=== PATIENT | male | born 1995 | race Two or more races ===

== ENCOUNTER 2018-04-10 22:43 | Emergency (ER) | payer SELFPAY ==
[~2018-04-10] VITALS: Ht 160 cm; Wt 68.0 kg
[2018-04-10] MEDS ORDERED: Morphine Sulfate 4mg/ml Inj (IV USE ONLY) IVP ONE (23:15)
[2018-04-10 23:22] LABS: HEMATOCRIT 46.3 % (42.0-52.0); HEMOGLOBIN 16.7 G/DL (14.2-18.0); MEAN CORPUSCULAR VOLUME 90 FL (80-99); PLATELET COUNT 130 K/UL (150-450); RED BLOOD COUNT 5.14 M/UL (4.70-6.10); RED CELL DISTRIBUTION WIDTH 10.2 % (11.6-14.8); WHITE BLOOD COUNT 17.6 K/UL (4.8-10.8)
[2018-04-10 23:26] VITALS: BP 141/87
[2018-04-10 23:30] LABS: ANION GAP 7 mmol/L (5-15); BLOOD UREA NITROGEN 17 mg/dL (7-18); CALCIUM 9.5 MG/DL (8.5-10.1); CARBON DIOXIDE 28 MMOL/L (21-32); CHLORIDE 102 MMOL/L (98-107); CREATININE 1.1 MG/DL (0.55-1.30); POTASSIUM 3.9 MMOL/L (3.5-5.1); SODIUM 137 MMOL/L (136-145)
[2018-04-10 23:34] LABS: ALANINE AMINOTRANSFERASE 40 U/L (12-78); ALBUMIN 4.5 G/DL (3.4-5.0); ALBUMIN/GLOBULIN RATIO 1.3 (1.0-2.7); ALKALINE PHOSPHATASE 74 U/L (46-116); ASPARTATE AMINO TRANSFERASE 38 U/L (15-37); BILIRUBIN,TOTAL 0.7 MG/DL (0.2-1.0)
[2018-04-11] MEDS ORDERED: Morphine Sulfate 4mg/ml Inj (IV USE ONLY) IVP ONE
[2018-04-11] MEDS ORDERED: Isovue-300 100ml vial INJ PRN
--- NOTE | 2018-04-11 00:35 | Emergency Room Report ---
History of Present Illness General Chief Complaint: Abdominal Pain Source: Patient Present Illness HPI 22-year-old male presents ED for evaluation. Patient came in complaining of abdominal pain and vomiting. Started around 2 PM today after eating lunch. Had multiple episodes of vomiting, chills with abdominal pain. Pain is diffuse, , 9 out of 10, sharp, nonradiating. Patient was seen at another hospital earlier this evening but left because it was taking too long. Denies chest pain or shortness of breath. Denies diarrhea. No other aggravating relieving factors. The any other associated symptoms Allergies: Coded Allergies: No Known Allergies (Unverified , 04/10/18) Patient History Past Medical History: none Past Surgical History: none Pertinent Family History: none Social History: Denies: smoking, alcohol use, drug use Immunizations: UTD Reviewed Nursing Documentation: PMH: Agreed; PSxH: Agreed Nursing Documentation-PMH Past Medical History: No Stated History Review of Systems All Other Systems: negative except mentioned in HPI Physical Exam Vital Signs Date Time Temp Pulse Resp B/P (MAP) Pulse Ox O2 Delivery O2 Flow Rate FiO2 04/10/18 22:47 98.3 85 16 150/91 99 Room Air 98.2 Sp02 EP Interpretation: reviewed, normal General Appearance: alert, GCS 15, non-toxic, mild distress Head: normocephalic, atraumatic Eyes: bilateral eye normal inspection, bilateral eye PERRL ENT: hearing grossly normal, normal pharynx, no angioedema, normal voice Neck: full range of motion, supple/symm/no masses Respiratory: chest non-tender, lungs clear, normal breath sounds, speaking full sentences Cardiovascular #1: regular rate, rhythm, no edema Cardiovascular #2: 2+ carotid (R), 2+ carotid (L), 2+ radial (R), 2+ radial (L) , 2+ dorsalis pedis (R), 2+ dorsalis pedis (L) Gastrointestinal: normal bowel sounds, soft, non-distended, no guarding, no rebound, tenderness Rectal: deferred Genitourinary: normal inspection, no CVA tenderness Musculoskeletal: back normal, gait/station normal, normal range of motion, non- tender Neurologic: alert, oriented x3, responsive, motor strength/tone normal, sensory intact, speech normal Psychiatric: judgement/insight normal, memory normal, mood/affect normal, no suicidal/homicidal ideation Reflexes: 3+ bicep (R), 3+ bicep (L), 3+ tricep (R), 3+ tricep (L), 3+ knee (R) , 3+ knee (L) Skin: normal color, no rash, warm/dry, well hydrated Lymphatic: no adenopathy Medical Decision Making Diagnostic Impression: Primary Impression: Abdominal pain Qualified Codes: R10.84 - Generalized abdominal pain Additional Impression: Gallbladder polyp ER Course Hospital Course 22-year-old M presents to ED with abdominal pain Differential diagnosis includes-appendicitis, cholecystitis, small bowel obstruction, gastritis, Clinical course Patient placed on stretcher. After initial history and physical I ordered labs , IV fluids, pain medications and CT scan Labs - noted leukocytosis, electrolytes ok, LFTs normal CT machine is down. Ultrasound ordered Ultrasound shows questionable polyp and gallbladder. Patient states pain is overall improved but still has some pain. I offered option to transfer patient for CT scan but patient declined stating he would prefer to go home with medication. discussed findings with patient about polyp. likely benign but requires outpatient followup. I feel this is a highly complex case requiring extensive working including EKG/ Rhythm strip, Xray/CT/US, Blood/urine lab work, repeat exams while in ED, and administration of strong opiates/narcotics for pain control, admission to hospital or close patient follow up. Diagnosis - abdominal pain, gallbladder polyp Stable and discharged to home with Rx Bentyl, Zantac. Followup with PMD. Return to ED if symptoms recur or worsen Labs Test 04/10/18 23:00 White Blood Count 17.6 K/UL (4.8-10.8) Red Blood Count 5.14 M/UL (4.70-6.10) Hemoglobin 16.7 G/DL (14.2-18.0) Hematocrit 46.3 % (42.0-52.0) Mean Corpuscular Volume 90 FL (80-99) Mean Corpuscular Hemoglobin 32.4 PG (27.0-31.0) Mean Corpuscular Hemoglobin Concent 36.0 G/DL (32.0-36.0) Red Cell Distribution Width 10.2 % (11.6-14.8) Platelet Count 130 K/UL (150-450) Mean Platelet Volume 13.8 FL (6.5-10.1) Neutrophils (%) (Auto) % (45.0-75.0) Lymphocytes (%) (Auto) % (20.0-45.0) Monocytes (%) (Auto) % (1.0-10.0) Eosinophils (%) (Auto) % (0.0-3.0) Basophils (%) (Auto) % (0.0-2.0) Sodium Level 137 MMOL/L (136-145) Potassium Level 3.9 MMOL/L (3.5-5.1) Chloride Level 102 MMOL/L (98-107) Carbon Dioxide Level 28 MMOL/L (21-32) Anion Gap 7 mmol/L (5-15) Blood Urea Nitrogen 17 mg/dL (7-18) Creatinine 1.1 MG/DL (0.55-1.30) Estimat Glomerular Filtration Rate > 60 mL/min (>60) Glucose Level 121 MG/DL (74-106) Calcium Level 9.5 MG/DL (8.5-10.1) Total Bilirubin 0.7 MG/DL (0.2-1.0) Aspartate Amino Transf (AST/SGOT) 38 U/L (15-37) Alanine Aminotransferase (ALT/SGPT) 40 U/L (12-78) Alkaline Phosphatase 74 U/L (46-116) Total Protein 7.9 G/DL (6.4-8.2) Albumin 4.5 G/DL (3.4-5.0) Globulin 3.4 g/dL Albumin/Globulin Ratio 1.3 (1.0-2.7) Lipase 75 U/L (73-393) CT/MRI/US Diagnostic Results CT/MRI/US Diagnostic Results : Imaging Test Ordered: ABD US Impression ? polyp in gallbladder. Last Vital Signs Date Time Temp Pulse Resp B/P (MAP) Pulse Ox O2 Delivery O2 Flow Rate FiO2 04/10/18 23:26 98.0 68 17 141/87 97 Room Air 98.0 Status: improved Disposition: HOME, SELF-CARE Condition: Stable Scripts Dicyclomine Hcl* (DICYCLOMINE HCL*) 10 Mg Capsule 10 MG PO QID, #20 CAP Prov: Reynaldo Lind MD 04/11/18 Ondansetron Odt* (ZOFRAN ODT*) 4 Mg Tab.rapdis 4 MG BC EVERY 6 HOURS PRN for Nausea & Vomiting, #10 TAB 0 Refills Prov: Reynaldo Lind MD 04/11/18 Ranitidine Hcl* (ZANTAC*) 150 Mg Tablet 150 MG ORAL TWICE A DAY, #30 TAB Prov: Reynaldo Lind MD 04/11/18 Referrals: NOT CHOSEN IPA/,REFERRING (PCP) Reynaldo Lind MD Apr 11, 2018 00:35
[2018-04-11 02:00] VITALS: BP 115/75
[2018-04-11] MEDS ORDERED: RANITIDINE HCL150 MG ORAL (02:40)
[2018-04-11] MEDS ORDERED: DICYCLOMINE HCL10 MG PO (02:40)
[2018-04-11] MEDS ORDERED: ONDANSETRON ODT4 MG BC (02:40)
[2018-04-11] MEDS ORDERED: Dicyclomine HCl 10mg/5ml oral soln ORAL ONE (02:45)
[2018-04-11] MEDS ORDERED: Lidocaine 2% Visc 15ml soln ORAL ONE (02:45)
[2018-04-11] MEDS ORDERED: Mylanta II UD 30ml ORAL ONE (02:45)
[2018-04-11 02:56] VITALS: BP 115/75
[2018-04-11] MEDS ORDERED: NKM (09:51)
--- NOTE | 2018-04-11 13:16 | Diagnostic Imaging Report ---
Indication: Right upper quadrant abdominal pain Technique: Grayscale and duplex Doppler imaging of the abdomen performed. Comparison: None Findings: The liver is echogenic consistent with fatty infiltration. CBD is 2.8 mm. The gallbladder shows a tiny nongravity dependent nodular focus along the wall probably a small polyp.. The demonstrated part of the pancreas, aorta and IVC show no abnormalities. Both kidneys appear unremarkable. The spleen is normal in size. There is no biliary ductal dilatation identified. Doppler evaluation of the main portal vein shows patency. There is no ascites. No hydronephrosis seen. Impression: Fatty liver. Suspected tiny gallbladder polyp
[2018-04-12] MEDS ORDERED: COLACE100 MG ORAL (13:25)
[2018-04-12] MEDS ORDERED: NORCO 5-325 TA1 EACH ORAL (13:25)
== END 2018-04-11 02:47 | disposition home or self-care (01) ==
LOC: EMR 23:10
DX: R10.9 Unspecified abdominal pain (principal); R11.10 Vomiting, unspecified; K76.0 Fatty (change of) liver, not elsewhere classified
CPT/HCPCS: 36415; 76700; 80053; 83690; 85025; 96361; 96374; 96375; 96376; 99284; J2270; J2405; S0028

== ENCOUNTER 2018-04-11 09:43 | Inpatient (IN) | payer MEDICAID ==
[~2018-04-11] VITALS: Ht 165.1 cm; Wt 76.9 kg
[2018-04-11] VITALS (14 sets, daily range): BP systolic 92–124; BP diastolic 44–83
[~2018-04-11 09:43] MED LIST: DICYCLOMINE HCL10 MG PO; ONDANSETRON ODT4 MG BC; RANITIDINE HCL150 MG ORAL
[2018-04-11] MEDS ORDERED: NKM (09:51)
[2018-04-11] MEDS ORDERED: Morphine Sulfate 4mg/ml Inj (IV USE ONLY) IVP ONE ×2 (10:15→13:00)
[2018-04-11] MEDS ORDERED: Isovue-300 100ml vial INJ PRN (10:15)
[2018-04-11 10:28] LABS: HEMATOCRIT 46.7 % (42.0-52.0); HEMOGLOBIN 16.6 G/DL (14.2-18.0); MEAN CORPUSCULAR VOLUME 89 FL (80-99); PLATELET COUNT 140 K/UL (150-450); RED BLOOD COUNT 5.25 M/UL (4.70-6.10); RED CELL DISTRIBUTION WIDTH 10.4 % (11.6-14.8); WHITE BLOOD COUNT 21.2 K/UL (4.8-10.8)
--- NOTE | 2018-04-11 10:31 | Emergency Room Report ---
History of Present Illness General Chief Complaint: Abdominal Pain Source: Patient Present Illness HPI 22-year-old male presents with a history of marijuana use reports right lower quadrant pain since yesterday, reports started in epigastric area, then migrated to the right lower quadrant, now with severe constant stabbing, nonradiating right lower quadrant abdominal pain. He denies hematuria, testicle pain, penile discharge, diarrhea, bloody stools, but does report multiple bouts of nausea and vomiting. He denies fevers. Allergies: Coded Allergies: No Known Allergies (Unverified , 04/10/18) Patient History Past Medical History: see triage record Social History: Reports: drug use - marijuana only Reviewed Nursing Documentation: PMH: Agreed; PSxH: Agreed Nursing Documentation-PMH Past Medical History: No Stated History Review of Systems All Other Systems: negative except mentioned in HPI Physical Exam Vital Signs Date Time Temp Pulse Resp B/P (MAP) Pulse Ox O2 Delivery O2 Flow Rate FiO2 04/11/18 09:48 98.9 91 16 120/73 94 Room Air 99.0 Sp02 EP Interpretation: reviewed, normal General Appearance: no apparent distress, alert, non-toxic Head: normocephalic Eyes: bilateral eye normal inspection, bilateral eye PERRL, bilateral eye EOMI ENT: normal ENT inspection, hearing grossly normal, normal pharynx, no angioedema, normal voice, moist mucus membranes Neck: normal inspection, full range of motion, supple, supple/symm/no masses Respiratory: chest non-tender, lungs clear, normal breath sounds, chest symmetrical, palpation of chest normal Cardiovascular #1: normal peripheral pulses, regular rate, rhythm Cardiovascular #2: 2+ radial (R), 2+ radial (L) Gastrointestinal: normal inspection, no mass, no peritonitis, no rebound, guarding, tenderness - RLQ tenderness Rectal: deferred Genitourinary: normal inspection, no CVA tenderness Musculoskeletal: back normal, gait/station normal, normal range of motion, non- tender, no calf tenderness Neurologic: alert, responsive, security administrator III-XII nml as tested, motor strength/tone normal, sensory intact, speech normal Psychiatric: judgement/insight normal, memory normal, mood/affect normal, no suicidal/homicidal ideation Skin: normal color, no rash, warm/dry, normal turgor Lymphatic: no adenopathy Medical Decision Making Diagnostic Impression: Primary Impression: Abdominal pain ER Course Labs show white count 21, CT shows acute appendicitis with no evidence of perforation, patient given IV Zosyn, serial exams still with no evidence for perforation, Dr. Casey to take to the operating room. Rhythm Strip Diag. Results Rhythm Strip Time: 12:56 EP Interpretation: yes Rate: 92 Rhythm: NSR, no PVC's, no ectopy Last Vital Signs Date Time Temp Pulse Resp B/P (MAP) Pulse Ox O2 Delivery O2 Flow Rate FiO2 04/11/18 10:21 99.0 04/11/18 10:04 81 23 124/83 99 Room Air Disposition: ADMITTED INPATIENT Condition: Stable SHONDA VERDIN M.D Apr 11, 2018 10:31
[2018-04-11 10:38] LABS: ANION GAP 10 mmol/L (5-15); BLOOD UREA NITROGEN 12 mg/dL (7-18); CALCIUM 8.8 MG/DL (8.5-10.1); CARBON DIOXIDE 25 MMOL/L (21-32); CHLORIDE 100 MMOL/L (98-107); POTASSIUM 3.6 MMOL/L (3.5-5.1); SODIUM 135 MMOL/L (136-145)
[2018-04-11 10:48] LABS: ALANINE AMINOTRANSFERASE 35 U/L (12-78); ALBUMIN/GLOBULIN RATIO 1.1 (1.0-2.7); ALKALINE PHOSPHATASE 65 U/L (46-116); ASPARTATE AMINO TRANSFERASE 26 U/L (15-37); BILIRUBIN,TOTAL 1.1 MG/DL (0.2-1.0)
[2018-04-11 10:49] LABS: BILIRUBIN,DIRECT 0.2 MG/DL (0.0-0.3)
[2018-04-11 11:20] LABS: APPEARANCE,URINE CLEAR; BILIRUBIN, URINE NEGATIVE (NEGATIVE); COLOR,URINE PALE YELLOW; GLUCOSE, URINE (UA) NEGATIVE (NEGATIVE); KETONES,URINE 3+ (NEGATIVE); LEUKOCYTE ESTERASE ,URINE NEGATIVE (NEGATIVE); NITRITE,URINE NEGATIVE (NEGATIVE); PH,URINE 7 (4.5-8.0); PROTEIN,URINE NEGATIVE (NEGATIVE); UROBILINOGEN,URINE NORMAL MG/DL (0.0-1.0)
--- NOTE | 2018-04-11 11:35 | Diagnostic Imaging Report ---
Indication: Abdominal pain Technique: Continuous helical transaxial imaging of the abdomen and pelvis was obtained from the lung bases to the pubic symphysis during intravenous contrast administration. Coronal 2-D reformats were also obtained. Study obtained in a Siemens sensation [address] Automatic Exposure Control was utilized. Total Dose length Product (DLP): 673.[address] Dose Index Volume (CTDIvol): 12.77 mGy Comparison: None Findings: The appendix appears inflamed with wall thickening and dilatation and periappendiceal inflammation. The appendix is retrocecal in location. The origin of the appendix is right at about the level of the pelvic brim or top of iliac crest. The appendix then projects posteriorly and cranially such that the tip is at the level of the right kidney. There is no drainable abscess. Urinary bladder appears normal. There is no hydronephrosis. There is a small hiatal hernia. The liver is slightly low in attenuation. The spleen, pancreas, adrenal glands and kidneys appear normal. There is no free air. Few diverticula noted in the sigmoid colon. IMPRESSION: Acute retrocecal appendicitis with moderate inflammation. No abscess. Mild fatty liver The CT scanner at [facility] is accredited by the [employer] and the scans are performed using dose optimization techniques as appropriate to a performed exam including Automatic Exposure control.
[2018-04-11] MEDS ORDERED: Piperacillin/Tazobactam 3.375 GM in NS 110 ML IVPB ONE (12:15)
[2018-04-11] MEDS ORDERED: Zosyn 3.375gm inj ONE (12:18)
[2018-04-11] MEDS ORDERED: Bupivacaine w/Epi 0.25% 30ml Vial INJ ONE (12:56)
--- NOTE | 2018-04-11 13:18 | Consultation ---
History of Present Illness General Date patient seen: Apr 11, 2018 Chief Complaint: Abdominal Pain Reason for Consultation: acute appendicitis Present Illness HPI 22 year old male otherwise healthy presented to ED with complaints of abdominal pain. States that pain surjit-umbilical yesterday and since has migrated to [facility]. Sharp 02/10 pain without radiation. +n/v. Came to ED for evaluation. Leukocytosis. CT with acute appy. Surgery called to evaluate. patient seen, chart reviewed, patient examined. Allergies: Coded Allergies: No Known Allergies (Unverified , 04/10/18) Medication History Scheduled Dicyclomine Hcl* (Dicyclomine Hcl*), 10 MG PO QID No Known Medications* (NKM - No Known Medications*), 0 ., (Reported) Ranitidine Hcl* (Zantac*), 150 MG ORAL TWICE A DAY Scheduled PRN Ondansetron Odt* (Zofran Odt*), 4 MG BC EVERY 6 HOURS PRN for Nausea & Vomiting Patient History History Provided By: Patient, Medical Record, PMD Healthcare decision maker Resuscitation status Advanced Directive on File Past Medical/Surgical History Past Medical/Surgical History: (1) Acute appendicitis Review of Systems All Other Systems: negative except mentioned in HPI Physical Exam General Appearance: no apparent distress Lines, tubes and drains: peripheral HEENT: atraumatic, mucous membranes moist Neck: normal inspection Respiratory/Chest: normal breath sounds, no respiratory distress, no accessory muscle use Cardiovascular/Chest: normal rate Abdomen: soft, no organomegaly, no mass, distended, guarding, rebound, tender Extremities: normal inspection Skin Exam: warm/dry Neurologic: alert, oriented x 3 Last 24 Hour Vital Signs Date Time Temp Pulse Resp B/P (MAP) Pulse Ox O2 Delivery O2 Flow Rate FiO2 04/11/18 12:58 100.3 04/11/18 12:47 100.3 88 24 116/69 99 Room Air 100.3 04/11/18 10:51 100.3 04/11/18 10:44 98.0 89 20 121/54 99 Room Air 98.0 04/11/18 10:21 99.0 04/11/18 10:04 99.0 81 23 124/83 99 Room Air 99.0 04/11/18 09:48 98.9 91 16 120/73 94 Room Air 99.0 Laboratory Tests Test 04/11/18 10:00 10/9/18 11:12 White Blood Count 21.2 K/UL (4.8-10.8) H Red Blood Count 5.25 M/UL (4.70-6.10) Hemoglobin 16.6 G/DL (14.2-18.0) Hematocrit 46.7 % (42.0-52.0) Mean Corpuscular Volume 89 FL (80-99) Mean Corpuscular Hemoglobin 31.6 PG (27.0-31.0) H Mean Corpuscular Hemoglobin Concent 35.6 G/DL (32.0-36.0) Red Cell Distribution Width 10.4 % (11.6-14.8) L Platelet Count 140 K/UL (150-450) L Mean Platelet Volume 15.4 FL (6.5-10.1) H Neutrophils (%) (Auto) % (45.0-75.0) Lymphocytes (%) (Auto) % (20.0-45.0) Monocytes (%) (Auto) % (1.0-10.0) Eosinophils (%) (Auto) % (0.0-3.0) Basophils (%) (Auto) % (0.0-2.0) Differential Total Cells Counted 100 Neutrophils % (Manual) 83 % (45-75) H Lymphocytes % (Manual) 3 % (20-45) L Monocytes % (Manual) 13 % (1-10) H Eosinophils % (Manual) 0 % (0-3) Basophils % (Manual) 0 % (0-2) Band Neutrophils 1 % (0-8) Platelet Estimate Decreased L Platelet Morphology Normal Anisocytosis 1+ Sodium Level 135 MMOL/L (136-145) L Potassium Level 3.6 MMOL/L (3.5-5.1) Chloride Level 100 MMOL/L (98-107) Carbon Dioxide Level 25 MMOL/L (21-32) Anion Gap 10 mmol/L (5-15) Blood Urea Nitrogen 12 mg/dL (7-18) Creatinine 1.0 MG/DL (0.55-1.30) Estimat Glomerular Filtration Rate > 60 mL/min (>60) Glucose Level 134 MG/DL (74-106) H Calcium Level 8.8 MG/DL (8.5-10.1) Total Bilirubin 1.1 MG/DL (0.2-1.0) H Direct Bilirubin 0.2 MG/DL (0.0-0.3) Aspartate Amino Transf (AST/SGOT) 26 U/L (15-37) Alanine Aminotransferase (ALT/SGPT) 35 U/L (12-78) Alkaline Phosphatase 65 U/L (46-116) Total Protein 7.5 G/DL (6.4-8.2) Albumin 4.0 G/DL (3.4-5.0) Globulin 3.5 g/dL Albumin/Globulin Ratio 1.1 (1.0-2.7) Lipase 101 U/L (73-393) Urine Color Pale yellow Urine Appearance Clear Urine pH 7 (4.5-8.0) Urine Specific [place]ires 1.010 (1.005-1.035) Urine Protein Negative (NEGATIVE) Urine Glucose (UA) Negative (NEGATIVE) Urine Ketones 3+ (NEGATIVE) H Urine Blood Negative (NEGATIVE) Urine Nitrite Negative (NEGATIVE) Urine Bilirubin Negative (NEGATIVE) Urine Urobilinogen Normal MG/DL (0.0-1.0) Urine Leukocyte Esterase Negative (NEGATIVE) Height (Feet): 5 Height (Inches): 4.00 Weight (Pounds): 160 Medications Current Medications Medications (Trade) Dose Ordered Sig/Roge Route PRN Reason Start Time Stop Time Status Last Admin Dose Admin Barium Sulfate (Readi-Cat 2) 450 ml NOW PRN ORAL Radiology Procedure 04/11/18 10:15 04/13/18 10:11 Iopamidol (Isovue-300 100ml) 100 ml NOW PRN INJ Radiology Procedure 04/11/18 10:15 Sodium Chloride 1,000 ml @ 999 mls/hr Q1H1M ONCE IV 04/11/18 12:57 04/11/18 13:57 04/11/18 12:59 Assessment/Plan Problem List: (1) Acute appendicitis Assessment & Plan: 22M acute appendicitis. afebrile, HD stable, leukocytosis, CT consistent with acute appy. NPO IV fluids IV Abx to OR for lap vs open appy ICD Codes: K35.80 - Unspecified acute appendicitis SNOMED: [id number] Qualifiers: Qualified Codes: K35.3 - Acute appendicitis with localized peritonitis Status: stable Rd Haywood Apr 11, 2018 13:18
[2018-04-11] MEDS ORDERED: Succinylcholine 20mg/ml 10ml vial ONE (13:22)
[2018-04-11] MEDS ORDERED: Zemuron 50mg/5ml Inj IV ONE (13:22)
[2018-04-11] MEDS ORDERED: fentaNYL 100 mcg/2 mL IV ONE (13:24)
[2018-04-11] MEDS ORDERED: Midazolam 2mg/2ml Inj ONE (13:24)
[2018-04-11] MEDS ORDERED: Ketorolac 30mg Inj ONE (13:29)
[2018-04-11] MEDS ORDERED: Propofol 200mg/20ml IV ONE (13:29)
[2018-04-11] MEDS ORDERED: Lidocaine 1% MPF 10mg/ml 5ml ONE (13:29)
[2018-04-11] MEDS ORDERED: Sodium Chloride 10ml vial INJ ONE (13:32)
[2018-04-11] MEDS: LR 1000ml 1,000 ML IVLG SCH ×2 (14:25→21:26)
--- NOTE | 2018-04-11 14:25 | Anethesia Preoperative Eval ---
Anesthesia Pre-op PMH/ROS General Date of Evaluation: Apr 11, 2018 Time of Evaluation: 13:20 Anesthesiologist: Kim ASA Score: ASA 1 Mallampati Score Class I : Soft palate, uvula, fauces, pillars visible Class II: Soft palate, uvula, fauces visible Class III: Soft palate, base of uvula visible Class IV: Only hard plate visible Mallampati Classification: Class II Surgeon: Willi Diagnosis: Acute appendicitis Surgical Procedure: Laparoscopic appendectomy Anesthesia History: none Family History: no anesthesia problems Allergies: Coded Allergies: No Known Allergies (Unverified , 04/10/18) Medications: see eMAR Patient NPO?: Yes Past Medical History Cardiovascular: Denies: HTN, CAD, AL, valve dz, arrhythmia, other Pulmonary: Denies: asthma, COPD, LESIA, other Gastrointestinal/Genitourinary: Reports: GERD - mild; Denies: CRI, ESRD, other Neurologic/Psychiatric: Denies: dementia, CVA, depression/anxiety, TIA, other Endocrine: Denies: DM, hypothyroidism, steroids, other HEENT: Denies: cataract (L), cataract (R), glaucoma, [place] (L), [place] (R), other Hematology/Immune: Denies: anemia, DVT, bleeding disorder, other Musculoskeletal/Integumentary: Denies: OA, RA, DJD, DDD, edema, other PMH Narrative: Acute abdominal pain for 2 days PSxH Narrative: None Anesthesia Pre-op Phys. Exam Physician Exam Last Vital Signs Date Time Temp Pulse Resp B/P (MAP) Pulse Ox O2 Delivery O2 Flow Rate FiO2 04/11/18 12:58 100.3 04/11/18 12:47 88 24 116/69 99 Room Air Constitutional: NAD Neurologic: CN 2-12 intact Cardiovascular: RRR, no M/R/G Respiratory: CTA Gastrointestinal: other - some tederness on palpation Airway Exam Mallampati Score: Class II MO: full Neck: flexible ROM: full Teeth: intact Dentures: no upper, no lower Anesthesia Pre-op A/P Labs Hematology Test 04/11/18 10:00 White Blood Count 21.2 K/UL (4.8-10.8) H Red Blood Count 5.25 M/UL (4.70-6.10) Hemoglobin 16.6 G/DL (14.2-18.0) Hematocrit 46.7 % (42.0-52.0) Mean Corpuscular Volume 89 FL (80-99) Mean Corpuscular Hemoglobin 31.6 PG (27.0-31.0) H Mean Corpuscular Hemoglobin Concent 35.6 G/DL (32.0-36.0) Red Cell Distribution Width 10.4 % (11.6-14.8) L Platelet Count 140 K/UL (150-450) L Mean Platelet Volume 15.4 FL (6.5-10.1) H Neutrophils (%) (Auto) % (45.0-75.0) Lymphocytes (%) (Auto) % (20.0-45.0) Monocytes (%) (Auto) % (1.0-10.0) Eosinophils (%) (Auto) % (0.0-3.0) Basophils (%) (Auto) % (0.0-2.0) Differential Total Cells Counted 100 Neutrophils % (Manual) 83 % (45-75) H Lymphocytes % (Manual) 3 % (20-45) L Monocytes % (Manual) 13 % (1-10) H Eosinophils % (Manual) 0 % (0-3) Basophils % (Manual) 0 % (0-2) Band Neutrophils 1 % (0-8) Platelet Estimate Decreased L Platelet Morphology Normal Anisocytosis 1+ Chemistry Test 04/11/18 10:00 Sodium Level 135 MMOL/L (136-145) L Potassium Level 3.6 MMOL/L (3.5-5.1) Chloride Level 100 MMOL/L (98-107) Carbon Dioxide Level 25 MMOL/L (21-32) Anion Gap 10 mmol/L (5-15) Blood Urea Nitrogen 12 mg/dL (7-18) Creatinine 1.0 MG/DL (0.55-1.30) Estimat Glomerular Filtration Rate > 60 mL/min (>60) Glucose Level 134 MG/DL (74-106) H Calcium Level 8.8 MG/DL (8.5-10.1) Total Bilirubin 1.1 MG/DL (0.2-1.0) H Direct Bilirubin 0.2 MG/DL (0.0-0.3) Aspartate Amino Transf (AST/SGOT) 26 U/L (15-37) Alanine Aminotransferase (ALT/SGPT) 35 U/L (12-78) Alkaline Phosphatase 65 U/L (46-116) Total Protein 7.5 G/DL (6.4-8.2) Albumin 4.0 G/DL (3.4-5.0) Globulin 3.5 g/dL Albumin/Globulin Ratio 1.1 (1.0-2.7) Lipase 101 U/L (73-393) Risk Assessment & Plan Assessment: ASA 1E Plan: GA with ETT Pre-Antibiotics Drug: none Tito Alvarez MD Apr 11, 2018 14:25
[2018-04-11] MEDS ORDERED: Glycopyrrolate 0.2mg/ml 1ml Vial ONE (14:28)
[2018-04-11] MEDS ORDERED: Midazolam 2mg/2ml Inj IVP PRN (14:30)
[2018-04-11] MEDS ORDERED: Morphine Sulfate 2mg/ml Inj IVP PRN ×3 (14:30→16:30)
[2018-04-11] MEDS ORDERED: Ketorolac 30mg Inj IV PRN (14:30)
[2018-04-11] MEDS ORDERED: Meperidine 50mg/ml Inj(FOR RIGORS ONLY) IV PRN (14:30)
[2018-04-11] MEDS ORDERED: Metoclopramide 10mg/2ml Inj IVP PRN (14:30)
[2018-04-11] MEDS ORDERED: DiphenhydrAMINE 50mg/ml Inj IVP PRN ×2 (14:30→16:30)
--- NOTE | 2018-04-11 15:04 | Immediate Post-Op Evaluation ---
Immediate Post-Op Evalulation Immediate Post-Op Evalulation Procedure: Laparoscopic appendectomy Date of Evaluation: Apr 11, 2018 Time of Evaluation: 15:03 IV Fluids: 1200 Blood Products: none Estimated Blood Loss: min Urinary Output: 500 Blood Pressure Systolic: 94 Blood Pressure Diastolic: 56 Pulse Rate: 82 Respiratory Rate: 20 O2 Sat by Pulse Oximetry: 99 Temperature (Fahrenheit): 97.9 Pain Score (1-10): 1 Nausea: No Vomiting: No Complications none Patient Status: reacts, patent, extubated, none Hydration Status: adequate Tito Alvarez MD Apr 11, 2018 15:04
--- NOTE | 2018-04-11 16:21 | Brief Operative Note ---
Immediate Post Operative Note Operative Note Pre-op Diagnosis: acute appendicitis Procedure: lap appy Post-op Diagnosis: same as pre-op Surgeon: phyllis Anesthesiologist: rody Anesthesia: general Specimen: yes Complications: none Condition: stable Fluids: see records Estimated Blood Loss: minimal Drains: none Implant(s) used?: No Rd [place]wood Apr 11, 2018 16:21
[2018-04-11] MEDS ORDERED: Milk of Magnesia 30ml Ud ORAL PRN (16:30)
[2018-04-11] MEDS ORDERED: Norco 5mg/325mg tab ORAL PRN (16:30)
[2018-04-11] MEDS ORDERED: Morphine Sulfate 4mg/ml Inj (IV USE ONLY) IVP PRN (16:30)
[2018-04-11] MEDS: Docusate 100mg cap ORAL SCH (18:38)
[2018-04-11] MEDS: D5 1/2NS w/KCl 20mEq 1,000 ML IV SCH (18:38)
[2018-04-11] MEDS: Heparin 5000 units/ml inj SUBQ SCH (21:00)
[2018-04-11] MEDS: Piperacillin/Tazobactam 3.375 GM in D5W 110 ML IVPB SCH (22:20)
--- NOTE | 2018-04-11 23:30 | Operative Note - Dictated ---
DATE OF OPERATION: 04/11/2018 PREOPERATIVE DIAGNOSIS: Acute appendicitis. POSTOPERATIVE DIAGNOSIS: Acute appendicitis. OPERATION PERFORMED: Laparoscopic appendectomy. ATTENDING SURGEON: Rd Haywood M.D. TELECOM COORDINATOR: None. ANESTHESIOLOGIST: Tito Alvarez M.D. ANESTHESIA: General CARDIAC NURSE SPECIALIST. ESTIMATED BLOOD LOSS: Minimal. IV FLUIDS: Please see anesthesia records. COMPLICATIONS: None. DRAINS: None. WOUND CLASSIFICATION: Class III. SPECIMEN: Appendix sent to pathology for review. COUNTS: Sponge and needle count correct x2. ANTIBIOTICS: The patient was given IV antibiotics for acute active inflammatory process prior to entering the operating room. INDICATIONS FOR PROCEDURE: This is a 22-year-old male who presented to the emergency department at [facility] complaining of worsening abdominal pain, initially it was beginning in the periumbilical region and then migrating to the right lower quadrant. The patient was noted to have leukocytosis and CT scan consistent with acute appendicitis. Risks, benefits, and alternatives were discussed with the patient in detail and consent was obtained. The patient was taken from the emergency department to the operating room for laparoscopic appendectomy. OPERATIVE NOTE: The patient was taken to the operating room and placed on operative table in supine position with left arm tucked. All bony prominences were well padded with GelPads. SCDs were placed. Preoperative time-out was taken identifying the patient, procedure, operative staff, and surgical staff. The patient stated that he voided just prior to entering the operating room and so Ramirez catheter was not inserted. General anesthesia was induced and the patient was intubated. The abdomen was clipped, prepped, and draped in standard surgical fashion. An umbilical incision was made using a fresh #11 scalpel. Incision was carried down to the fascia, which was elevated and incised. Entry into the abdomen was noted using open Kaya technique without complication. A 12 mm Kaya trocar was inserted and the abdomen was insufflated to 12 to 15 mmHg. The patient tolerated the insufflation well. Laparoscope was inserted and the abdomen was inspected. No abnormalities were noted in the right or left upper quadrants. In the left lower quadrant, no abnormalities were noted. The bladder was noted to be significantly distended despite the patient saying he voided just prior to entering the operating room. In the right lower quadrant appendix was initially visualized. Secondary trocars were placed under direct visualization beginning with a 5 mm suprapubic trocar followed by a 12 mm left lower quadrant trocar. Both were inserted under direct visualization without complication. The laparoscopic graspers were then used to identify the cecum. The tail of cecum was identified and followed to the confluence where the base of the appendix was noted. A lateral retrocecal appendix was identified. The base of the appendix was grasped and a window made in the mesentery. A laparoscopic linear stapler was then used to divide the base of the appendix without complication. Following this, the appendix was elevated until the mesentery could be identified. In a similar fashion, laparoscopic linear stapler was used to divide the mesentery of the appendix. Two loads were required. Following this, the appendix was placed in the endoscopic retrieval bag and removed from the abdomen using left lower quadrant port. The abdomen was inspected and some serous fluid was evacuated. The staple lines were identified and noted to be intact without bleeding or any other abnormalities. The remaining abdomen was inspected. No abnormalities were noted. Secondary trocars were removed under direct visualization followed by removal of the umbilical port site. The abdomen was allowed to desufflate. The umbilical fascial port site and left lower quadrant fascial port site were closed using #0 [id number] Vicryl suture. The remaining skin incisions were closed using 4-0 Monocryl subcutaneous interrupted sutures. Benzoin and Steri-Strips were applied followed by gauze and tape. The patient tolerated the procedure well. At the end of the procedure, a straight cath was performed to evacuate the bladder given the significant distention noted during the operating room. The patient was then extubated and taken to postanesthetic care unit in stable condition. Rd Haywood M.D. DR: KOMAL JOB#: [id number] CC: MAURICE
[2018-04-12 00:24] VITALS: BP 120/72
[2018-04-12] MEDS: HYDROcodone/Acetamin 10/325 tab ORAL PRN ×2 (02:02→09:05)
[2018-04-12 04:32] VITALS: BP 107/62
[2018-04-12] MEDS: Piperacillin/Tazobactam 3.375 GM in D5W 110 ML IVPB SCH (05:54)
[2018-04-12] MEDS: D5 1/2NS w/KCl 20mEq 1,000 ML IV SCH (05:55)
[2018-04-12 06:02] LABS: BASOPHILS % (AUTO) 0.5 % (0.0-2.0); EOSINOPHILS % (AUTO) 0.3 % (0.0-3.0); HEMATOCRIT 41.5 % (42.0-52.0); HEMOGLOBIN 14.5 G/DL (14.2-18.0); MEAN CORPUSCULAR VOLUME 90 FL (80-99); MONOCYTES % (AUTO) 6.7 % (1.0-10.0); NEUTROPHILS % (AUTO) 77.5 % (45.0-75.0); PLATELET COUNT 111 K/UL (150-450); RED BLOOD COUNT 4.63 M/UL (4.70-6.10); RED CELL DISTRIBUTION WIDTH 10.4 % (11.6-14.8)
[2018-04-12 06:26] LABS: ANION GAP 7 mmol/L (5-15); BLOOD UREA NITROGEN 8 mg/dL (7-18); CALCIUM 8.2 MG/DL (8.5-10.1); CARBON DIOXIDE 26 MMOL/L (21-32); CHLORIDE 106 MMOL/L (98-107); POTASSIUM 4.1 MMOL/L (3.5-5.1); SODIUM 139 MMOL/L (136-145)
[2018-04-12 08:00] VITALS: BP 113/73
[2018-04-12] MEDS: Heparin 5000 units/ml inj SUBQ SCH (09:00)
[2018-04-12] MEDS: Docusate 100mg cap ORAL SCH (09:04)
--- NOTE | 2018-04-12 11:20 | GI Initial Consult Note ---
History of Present Illness General Date patient seen: Apr 12, 2018 Time patient seen: 11:55 Reason for Hospitalization: Abdominal Pain Referring physician: EASTON CASTRO Reason for Consultation: acute appendicitis Present Illness HPI 22-year-old male presents with a history of marijuana use reports right lower quadrant pain since yesterday, reports started in epigastric area, then migrated to the right lower quadrant, now with severe constant stabbing, nonradiating right lower quadrant abdominal pain. He denies hematuria, testicle pain, penile discharge, diarrhea, bloody stools, but does report multiple bouts of nausea and vomiting. He denies fevers. GI consulted for abdominal pain, post operative N/V. Pt seen, awake A&Ox4 NAD with no active s/sx of N/V/D. Patient is no s/p lap appendectomy. Incisions are c/d/i without any obvious s/sx of bleeding or erythema. Pain controlled, patient tolerating diet. No history of endoscopy / colonoscopy. Home Meds Active Scripts Dicyclomine Hcl* (DICYCLOMINE HCL*) 10 Mg Capsule, 10 MG PO QID, #20 CAP Prov:Reynaldo Lind MD 04/11/18 Ondansetron Odt* (ZOFRAN ODT*) 4 Mg Tab.rapdis, 4 MG BC EVERY 6 HOURS PRN for Nausea & Vomiting, #10 TAB 0 Refills Prov:Reynaldo Lind MD 04/11/18 Ranitidine Hcl* (ZANTAC*) 150 Mg Tablet, 150 MG ORAL TWICE A DAY, #30 TAB Prov:Reynaldo Lind MD 04/11/18 Reported Medications No Known Medications* (NKM - No Known Medications*) ., 0 ., 0 Refills 04/11/18 Med list reviewed/reconciled: Yes Allergies: Coded Allergies: No Known Allergies (Unverified , 04/10/18) Patient History History Provided By: Patient PMH Narrative Past Medical History: see triage record Social History: Reports: drug use - marijuana only Reviewed Nursing Documentation: PMH: Agreed; PSxH: Agreed Nursing Documentation-PMH Past Medical History: No Stated History Social History: Denies: smoking, alcohol use, drug use, other Review of Systems All Other Systems: negative except mentioned in HPI Physical Exam Vital Signs Date Time Temp Pulse Resp B/P (MAP) Pulse Ox O2 Delivery O2 Flow Rate FiO2 04/11/18 09:48 98.9 91 16 120/73 94 Room Air 99.0 04/11/18 14:51 6 Sp02 EP Interpretation: reviewed, normal Labs Laboratory Tests Test 04/12/18 05:15 White Blood Count 11.0 K/UL (4.8-10.8) H Red Blood Count 4.63 M/UL (4.70-6.10) L Hemoglobin 14.5 G/DL (14.2-18.0) Hematocrit 41.5 % (42.0-52.0) L Mean Corpuscular Volume 90 FL (80-99) Mean Corpuscular Hemoglobin 31.3 PG (27.0-31.0) H Mean Corpuscular Hemoglobin Concent 34.9 G/DL (32.0-36.0) Red Cell Distribution Width 10.4 % (11.6-14.8) L Platelet Count 111 K/UL (150-450) L Mean Platelet Volume 14.8 FL (6.5-10.1) H Neutrophils (%) (Auto) 77.5 % (45.0-75.0) H Lymphocytes (%) (Auto) 15.0 % (20.0-45.0) L Monocytes (%) (Auto) 6.7 % (1.0-10.0) Eosinophils (%) (Auto) 0.3 % (0.0-3.0) Basophils (%) (Auto) 0.5 % (0.0-2.0) Sodium Level 139 MMOL/L (136-145) Potassium Level 4.1 MMOL/L (3.5-5.1) Chloride Level 106 MMOL/L (98-107) Carbon Dioxide Level 26 MMOL/L (21-32) Anion Gap 7 mmol/L (5-15) Blood Urea Nitrogen 8 mg/dL (7-18) Creatinine 1.0 MG/DL (0.55-1.30) Estimat Glomerular Filtration Rate > 60 mL/min (>60) Glucose Level 105 MG/DL (74-106) Calcium Level 8.2 MG/DL (8.5-10.1) L General Appearance: well appearing, no apparent distress, alert Head: normocephalic EENT: PERRL/EOMI, normal ENT inspection Neck: supple Respiratory: normal breath sounds, no respiratory distress Cardiovascular: normal rate Gastrointestinal: normal inspection, non tender, soft, normal bowel sounds, non -distended Rectal: deferred Genitourinary: deferred Musculoskeletal: normal inspection, back normal Neurologic: normal inspection, alert, oriented x3, responsive Psychiatric: normal inspection, judgement/insight normal, memory normal Skin: normal inspection, normal color, no rash, warm/dry, palpation normal, well hydrated Lymphatic: normal inspection, no adenopathy Current Medications Current Medications Medications (Trade) Dose Ordered Sig/Roge Route PRN Reason Start Time Stop Time Status Last Admin Dose Admin Acetaminophen (Tylenol) 650 mg Q6H PRN ORAL Mild Pain (Pain Scale 1-3) 04/11/18 16:30 05/11/18 16:29 Acetaminophen/ Hydrocodone Bitart ([place] 10/325) 1 tab Q4H PRN ORAL Severe Pain (Pain Scale 7-10) 04/11/18 16:30 04/18/18 16:29 04/12/18 09:05 Acetaminophen/ Hydrocodone Bitart ([place] 5/325) 1 tab Q4H PRN ORAL Moderate Pain (Pain Scale 4-6) 04/11/18 16:30 04/18/18 16:29 Al Hydroxide/Mg Hydroxide (Mylanta) 15 ml Q6H PRN ORAL DYSPEPSIA 04/11/18 16:30 05/11/18 16:29 Barium Sulfate (Readi-Cat 2) 450 ml NOW PRN ORAL Radiology Procedure 04/11/18 10:15 04/13/18 10:11 Dextrose/ Electrolytes 1,000 ml @ 75 mls/hr [id number] IV 04/11/18 18:00 05/11/18 17:59 04/12/18 05:55 Diphenhydramine HCl (Benadryl) 12.5 mg Q6H PRN IVP Itching/Pruritis 04/11/18 16:30 05/11/18 16:29 Docusate Sodium (Colace) 100 mg TWICE A DAY ORAL 04/11/18 18:00 05/11/18 17:59 04/12/18 09:04 Heparin Sodium (Porcine) (Heparin 5000 units/ml) 5,000 units EVERY 12 HOURS SUBQ 04/11/18 21:00 05/11/18 20:59 Iopamidol (Isovue-300 100ml) 100 ml NOW PRN INJ Radiology Procedure 04/11/18 10:15 Magnesium Hydroxide (Mom) 30 ml BIDPRN PRN ORAL Constipation 04/11/18 16:30 05/11/18 16:29 Morphine Sulfate (Morphine Sulfate) 1 mg Q4H PRN IVP pain scale 1-3 04/11/18 16:30 04/18/18 16:29 Morphine Sulfate (Morphine Sulfate) 2 mg Q4H PRN IVP pain scale 4-6 04/11/18 16:30 04/18/18 16:29 Morphine Sulfate (Morphine Sulfate) 4 mg Q4H PRN IVP pain score 7-10 04/11/18 16:30 04/18/18 16:29 Ondansetron HCl (Zofran) 4 mg Q6H PRN IVP Nausea & Vomiting 04/11/18 16:30 05/11/18 16:29 Piperacillin Sod/ Tazobactam Sod 3.375 gm/Dextrose 110 ml @ 27.5 mls/hr Q8HR IVPB 04/11/18 22:00 04/18/18 21:59 04/12/18 05:54 GI: Plan Problems: (1) Abdominal pain (2) Acute appendicitis (3) Status post laparoscopic appendectomy Plan symptomatic treatment monitor for post operative N/V pain mgmt adv diet per surgery fu labs Discussed with Dr. Vega. Thank you for this patient referral, we will follow. The patient was seen and examined at bedside and all new and available data was reviewed in the patients chart. I agree with the above findings, impression and plan. (Patient seen earlier today. Signature stamp does not reflect patient encounter time.). - MD Krista Cortes,[facility] [employer] SCI[employer] PROFESSOR Apr 12, 2018 11:20
[2018-04-12] MEDS ORDERED: NORCO 5-325 TA1 EACH ORAL (13:25)
[2018-04-12] MEDS ORDERED: COLACE100 MG ORAL (13:25)
--- NOTE | 2018-04-12 21:15 | Consultation ---
DATE OF CONSULTATION: 04/12/2018 INFECTIOUS DISEASES CONSULTATION CONSULTING PHYSICIAN: Nelli Thao M.D. REFERRING PHYSICIAN: Rd Haywood M.D. This consultation has been done on behalf of Dr. Manolo Garcia. HISTORY OF PRESENT ILLNESS: This is a 22-year-old gentleman with no significant past medical history who comes in with abdominal pain, which migrated to the right lower quadrant. He was found to have leukocytosis with CT abdomen showed acute appendicitis. He has undergone laparoscopic appendectomy and an Infectious Diseases consultation has been obtained for antibiotics. PAST MEDICAL HISTORY: Nothing significant. No history of diabetes, hypertension, and asthma SOCIAL HISTORY: He does not smoke. He drinks alcohol socially. No history of drug use. FAMILY HISTORY: Noncontributory. REVIEW OF SYSTEMS: RESPIRATORY: No fever, chills, cough, shortness of breath or chest pain. CARDIAC: No chest pain. No palpitations. No dizziness. No syncope. GASTROINTESTINAL: No nausea. No vomiting. Abdominal pain is improving. No diarrhea. MEDICATIONS: As an inpatient, he is on Zosyn, subcutaneous heparin, dextrose, docusate, morphine, Tylenol Mode, Zofran, milk of magnesia, Mylanta, Benadryl, iopamidol. ALLERGIES: No known drug allergies. PHYSICAL EXAMINATION: VITAL SIGNS: Temperature of 97.7, T-max of 98.5, pulse of 74, respiratory rate 16, blood pressure 113/73, O2 saturation of 98%. HEENT: Pupils equally reactive to light and accommodation. Mouth appears clean without thrush. NECK: Supple. No adenopathy. No JVD. CARDIOVASCULAR: Regular rate and rhythm. No murmurs. LUNGS: Clear to auscultation bilaterally. No crackles. No wheezes. ABDOMEN: In dressing. EXTREMITIES: No cyanosis, no clubbing, no edema. LABORATORY AND DIAGNOSTIC DATA: White count of 21, on 04/11/2018. White count of 11 today, hemoglobin 14.5, hematocrit 41.5 MCV 90, platelet count of 111. Sodium 139, potassium 4.1, chloride 106, bicarb 26, BUN 8, creatinine 1, glucose 105, calcium 8.2. Total bilirubin 0.2, AST 26, ALT 35, alkaline phosphatase 65, total protein 7.5, albumin of 4. Lipase of 101. UA showing LE negative. CT abdomen and pelvis showing acute retrocecal appendicitis with moderate inflammation, no abscess, mild fatty liver noted. ASSESSMENT: 1. This is a 22-year-old gentleman with no significant past medical history who came in with abdominal pain and is found to have acute appendicitis. He has undergone laparoscopic appendectomy. 2. Leukocytosis is improving. PLAN: 1. Continue Zosyn. 2. We will follow up the patient clinically. I would like to thank Dr. Haywood, for this consultation. Nelli Thao M.D. DR: Tobi JOB#: [id number] CC:
--- NOTE | 2018-04-13 06:29 | Discharge Summary ---
Discharge Summary Discharge Summary _ DATE OF ADMISSION: 04/11/2018 DATE OF DISCHARGE: 04/12/2018 CONSULTANTS: Dr. Ramirez Thao BRIEF HOSPITAL COURSE: Patient is a 22-year-old, with no medical history, presented to ED with complaints of abdominal pain that started in the periumbilical area and migrated to the right lower quadrant. He had nausea and vomiting. On evaluation at ED, blood work showed leukocytosis. CT of the abdomen showed acute appendicitis with moderate inflammation. He was then admitted was placed on nothing by mouth. He was started on IV antibiotics and underwent laparoscopic appendectomy. He tolerated procedure well. Surgery was uneventful. Postoperatively, he was given pain management. He was seen by GI and ID specialist. Diet was advanced and was tolerating diet well. He was ambulating well with good pain control. Incision site was clean dry and intact. He was cleared for discharge home. FINAL DIAGNOSES: Abdominal pain due to acute appendicitis status post laparoscopic appendectomy DISPOSITION: Patient was discharged home. DISCHARGE MEDICATIONS: Refer to Discharge Medication List. DISCHARGE INSTRUCTIONS: Follow up in a week. I have been assigned to dictate discharge summary on this account, and I was not involved in the patient's management. Emma Xiong NP Apr 13, 2018 06:29
--- NOTE | 2018-04-13 12:17 | History & Physical ---
History and Physical History & Physicial History of Present Illness General Date patient seen: Apr 11, 2018 Chief Complaint: Abdominal Pain Reason for Consultation: acute appendicitis Present Illness HPI 22 year old male otherwise healthy presented to ED with complaints of abdominal pain. States that pain surjit-umbilical yesterday and since has migrated to [facility]. Sharp 02/10 pain without radiation. +n/v. Came to ED for evaluation. Leukocytosis. CT with acute appy. Surgery called to evaluate. patient seen, chart reviewed, patient examined. Allergies: Coded Allergies: No Known Allergies (Unverified , 04/10/18) Medication History Scheduled Dicyclomine Hcl* (Dicyclomine Hcl*), 10 MG PO QID No Known Medications* (NKM - No Known Medications*), 0 ., (Reported) Ranitidine Hcl* (Zantac*), 150 MG ORAL TWICE A DAY Scheduled PRN Ondansetron Odt* (Zofran Odt*), 4 MG BC EVERY 6 HOURS PRN for Nausea & Vomiting Patient History History Provided By: Patient, Medical Record, PMD Healthcare decision maker Resuscitation status Advanced Directive on File Past Medical/Surgical History Past Medical/Surgical History: (1) Acute appendicitis ROS Review of Systems All Other Systems: negative except mentioned in HPI Physical Exam Physical Exam General Appearance: no apparent distress Lines, tubes and drains: peripheral HEENT: atraumatic, mucous membranes moist Neck: normal inspection Respiratory/Chest: normal breath sounds, no respiratory distress, no accessory muscle use Cardiovascular/Chest: normal rate Abdomen: soft, no organomegaly, no mass, distended, guarding, rebound, tender Extremities: normal inspection Skin Exam: warm/dry Neurologic: alert, oriented x 3 Last 24 Hour Vital Signs Date Time Temp Pulse Resp B/P (MAP) Pulse Ox O2 Delivery O2 Flow Rate FiO2 04/11/18 12:58 100.3 04/11/18 12:47 100.3 88 24 116/69 99 Room Air 100.3 04/11/18 10:51 100.3 04/11/18 10:44 98.0 89 20 121/54 99 Room Air 98.0 04/11/18 10:21 99.0 04/11/18 10:04 99.0 81 23 124/83 99 Room Air 99.0 04/11/18 09:48 98.9 91 16 120/73 94 Room Air 99.0 Laboratory Tests Test 04/11/18 10:00 04/11/18 11:12 White Blood Count 21.2 K/UL (4.8-10.8) H Red Blood Count 5.25 M/UL (4.70-6.10) Hemoglobin 16.6 G/DL (14.2-18.0) Hematocrit 46.7 % (42.0-52.0) Mean Corpuscular Volume 89 FL (80-99) Mean Corpuscular Hemoglobin 31.6 PG (27.0-31.0) H Mean Corpuscular Hemoglobin Concent 35.6 G/DL (32.0-36.0) Red Cell Distribution Width 10.4 % (11.6-14.8) L Platelet Count 140 K/UL (150-450) L Mean Platelet Volume 15.4 FL (6.5-10.1) H Neutrophils (%) (Auto) % (45.0-75.0) Lymphocytes (%) (Auto) % (20.0-45.0) Monocytes (%) (Auto) % (1.0-10.0) Eosinophils (%) (Auto) % (0.0-3.0) Basophils (%) (Auto) % (0.0-2.0) Differential Total Cells Counted 100 Neutrophils % (Manual) 83 % (45-75) H Lymphocytes % (Manual) 3 % (20-45) L Monocytes % (Manual) 13 % (1-10) H Eosinophils % (Manual) 0 % (0-3) Basophils % (Manual) 0 % (0-2) Band Neutrophils 1 % (0-8) Platelet Estimate Decreased L Platelet Morphology Normal Anisocytosis 1+ Sodium Level 135 MMOL/L (136-145) L Potassium Level 3.6 MMOL/L (3.5-5.1) Chloride Level 100 MMOL/L (98-107) Carbon Dioxide Level 25 MMOL/L (21-32) Anion Gap 10 mmol/L (5-15) Blood Urea Nitrogen 12 mg/dL (7-18) Creatinine 1.0 MG/DL (0.55-1.30) Estimat Glomerular Filtration Rate > 60 mL/min (>60) Glucose Level 134 MG/DL (74-106) H Calcium Level 8.8 MG/DL (8.5-10.1) Total Bilirubin 1.1 MG/DL (0.2-1.0) H Direct Bilirubin 0.2 MG/DL (0.0-0.3) Aspartate Amino Transf (AST/SGOT) 26 U/L (15-37) Alanine Aminotransferase (ALT/SGPT) 35 U/L (12-78) Alkaline Phosphatase 65 U/L (46-116) Total Protein 7.5 G/DL (6.4-8.2) Albumin 4.0 G/DL (3.4-5.0) Globulin 3.5 g/dL Albumin/Globulin Ratio 1.1 (1.0-2.7) Lipase 101 U/L (73-393) Urine Color Pale yellow Urine Appearance Clear Urine pH 7 (4.5-8.0) Urine Specific [place] 1.010 (1.005-1.035) Urine Protein Negative (NEGATIVE) Urine Glucose (UA) Negative (NEGATIVE) Urine Ketones 3+ (NEGATIVE) H Urine Blood Negative (NEGATIVE) Urine Nitrite Negative (NEGATIVE) Urine Bilirubin Negative (NEGATIVE) Urine Urobilinogen Normal MG/DL (0.0-1.0) Urine Leukocyte Esterase Negative (NEGATIVE) Height (Feet): 5 Height (Inches): 4.00 Weight (Pounds): 160 Medications Current Medications Medications (Trade) Dose Ordered Sig/Roge Route PRN Reason Start Time Stop Time Status Last Admin Dose Admin Barium Sulfate (Readi-Cat 2) 450 ml NOW PRN ORAL Radiology Procedure 04/11/18 10:15 04/13/18 10:11 Iopamidol (Isovue-300 100ml) 100 ml NOW PRN INJ Radiology Procedure 04/11/18 10:15 Sodium Chloride 1,000 ml @ 999 mls/hr Q1H1M ONCE IV 04/11/18 12:57 04/11/18 13:57 04/11/18 12:59 Assessment/Plan Assessment/Plan Problem List: (1) Acute appendicitis Assessment & Plan: 22M acute appendicitis. afebrile, HD stable, leukocytosis, CT consistent with acute appy. NPO IV fluids IV Abx to OR for lap vs open appy ICD Codes: K35.80 - Unspecified acute appendicitis SNOMED: [id number] Qualifiers: Qualified Codes: K35.3 - Acute appendicitis with localized peritonitis Status: stable Note - copy of consult note placed as H&P note Benyamini,Rd Apr 13, 2018 12:17
[2018-04-13] MEDS ORDERED: LR 1000ml ONE (13:30)
[2018-04-13] MEDS ORDERED: Sterile Water Irrig 1000ml IRRIG ONE (13:30)
[2018-04-13] MEDS ORDERED: NS Irrig 1000ml ONE (13:30)
== END 2018-04-12 13:30 | disposition home or self-care (01) | DRG 234 ==
LOC: EMR 11:27 → EDBEDREQ 13:05 → EDBEDREQSVC 13:05 → SUR 13:13 → EDBEDREQ 13:39 → 3E 16:00
PROC: 0DTJ4ZZ Resection of Appendix, Percutaneous Endoscopic Approach (ICD-10-PCS; principal; 2018-04-11 13:30)
DX: K35.80 Unspecified acute appendicitis (principal)
CPT/HCPCS: 36415; 74177; 80048; 80053; 81003; 82248; 83690; 85007; 85025; 86850; 86900; 86901; 94003; 94150; 96361; 96365; 96375; 99285; J2250; J2405